=== PATIENT | female | born 1965 | race Caucasian/White ===

== ENCOUNTER → 2020-02-21 | Outpatient (CLI) | payer MEDICARE, OTHER ==
[~2020-02-21] MED LIST: ACIDOPHILUS PR1 EAC2 PO; ALBUTEROL1.25 MG/3 INH; ALBUTEROL2.5 MG/3 M INH; ALL DAY ALLERGY10 M2 PO; ASPERCREME LI76.5 GM TOP; ASPIRIN CHEWABL81 MG PO; ASPIRIN EC81 MG PO; ATENOLOL50 MG PO; AUGMENTIN 875-1 EACH PO; CEFEPIME-D2 GM/50 ML IV; CILOSTAZOL100 MG PO; CYCLOBENZAPRINE10 MG PO; CYMBALTA30 MG PO; DETROL LA4 MG PO; DITROPAN XL10 MG PO; ELIQUIS 5 MG TAB5 MG PO; FENTANYL1 EACH TOP; FERROUS SULFAT325 M2 PO; FISH OIL 1,2001 EACH PO; FLORASTOR250 MG PO; FUROSEMIDE20 MG PO; GABAPENTIN600 MG PO; HYDROCODON-ACE1 EAC2 PO; HYDROCODON-ACE1 EAC6 PO; HYDROCODONE-AC1 EACH PO; IBUPROFEN200 MG PO; IBUPROFEN800 MG PO; ISOSORBIDE DINIT5 MG PO; JANTOVEN10 MG PO; LEVOFLOXACIN500 MG PO; LIPITOR40 MG PO; LISINOPRIL-HCT1 EAC1 PO; LISINOPRIL20 MG PO; LOPRESSOR 50 MG50 MG PO; MAG-OX 400 TAB400 MG PO; METHOCARBAMOL500 MG PO; METRONIDAZ500 MG/100 IV; MIRALAX17 GM PO; NEURONTIN800 MG PO; NICOTINE PATCH1 EAC2 TD; PAMELOR PO; PERCOCET 5-3251 EACH PO; PLAVIX 75 MG TA75 MG PO; POLYETHYLENE GL17 GM PO; PROTONIX 40 MG40 M1 PO; SENNA-TIME S T1 EACH PO; SENNOSIDES-DOC1 EACH PO; SEROQUEL50 MG PO; SODIUM CHLORIDE1 G1 PO; SPIRIVA RESPIMAT4 GM INH; SYMBICORT 160-1 INHA INH; THERAGRAN M TAB1 EA PO; TYLENOL 500 MG500 MG PO; VENTOLIN HFA 66.7 GM INH; ZESTORETIC 20-1 EACH PO; ZOCOR10 MG PO; ZYVOX600 MG PO; [UNRECOGNIZED DRUG - OTHER] PO
== END ==
LOC: WCC 14:30
PROC: 0KBT0ZZ Excision of Left Lower Leg Muscle, Open Approach (ICD-10-PCS; principal; 2020-02-21)
DX: L97.825 Non-pressure chronic ulcer of other part of left lower leg with muscle involvement without evidence of necrosis (principal); L98.495 Non-pressure chronic ulcer of skin of other sites with muscle involvement without evidence of necrosis; L97.425 Non-pressure chronic ulcer of left heel and midfoot with muscle involvement without evidence of necrosis; I74.5 Embolism and thrombosis of iliac artery; I74.3 Embolism and thrombosis of arteries of the lower extremities; F17.298 Nicotine dependence, other tobacco product, with other nicotine-induced disorders; E66.09 Other obesity due to excess calories; J44.9 Chronic obstructive pulmonary disease, unspecified; I10 Essential (primary) hypertension
CPT/HCPCS: 87070; 87205

== ENCOUNTER → 2020-02-28 | Outpatient (CLI) | payer MEDICARE, OTHER | LOC: WCC 14:23 | PROC: 0KBT0ZZ Excision of Left Lower Leg Muscle, Open Approach (ICD-10-PCS; principal; 2020-02-28) | DX: L97.425 Non-pressure chronic ulcer of left heel and midfoot with muscle involvement without evidence of necrosis (principal); I74.3 Embolism and thrombosis of arteries of the lower extremities; F17.298 Nicotine dependence, other tobacco product, with other nicotine-induced disorders; E66.09 Other obesity due to excess calories; J44.9 Chronic obstructive pulmonary disease, unspecified; I10 Essential (primary) hypertension; Z79.899 Other long term (current) drug therapy ==

== ENCOUNTER → 2020-03-06 | Outpatient (CLI) | payer MEDICARE, OTHER | LOC: WCC 09:00 | PROC: 0KBT0ZZ Excision of Left Lower Leg Muscle, Open Approach (ICD-10-PCS; principal; 2020-03-06) | DX: L97.425 Non-pressure chronic ulcer of left heel and midfoot with muscle involvement without evidence of necrosis (principal); I74.5 Embolism and thrombosis of iliac artery; I74.3 Embolism and thrombosis of arteries of the lower extremities; F17.298 Nicotine dependence, other tobacco product, with other nicotine-induced disorders; E66.09 Other obesity due to excess calories; J44.9 Chronic obstructive pulmonary disease, unspecified; I10 Essential (primary) hypertension; Z79.899 Other long term (current) drug therapy ==

== ENCOUNTER → 2020-03-13 | Outpatient (CLI) | payer MEDICARE, OTHER | LOC: WCC 14:04 | PROVIDERS: Nurse Practitioner Family | PROC: 0KBT0ZZ Excision of Left Lower Leg Muscle, Open Approach (ICD-10-PCS; principal; 2020-03-13) | DX: L97.825 Non-pressure chronic ulcer of other part of left lower leg with muscle involvement without evidence of necrosis (principal); S31.104A Unspecified open wound of abdominal wall, left lower quadrant without penetration into peritoneal cavity, initial encounter; X58.XXXA Exposure to other specified factors, initial encounter; L97.425 Non-pressure chronic ulcer of left heel and midfoot with muscle involvement without evidence of necrosis; I74.5 Embolism and thrombosis of iliac artery; I74.3 Embolism and thrombosis of arteries of the lower extremities; F17.298 Nicotine dependence, other tobacco product, with other nicotine-induced disorders; E66.09 Other obesity due to excess calories; J44.9 Chronic obstructive pulmonary disease, unspecified; I10 Essential (primary) hypertension | CPT/HCPCS: 36415; 80048 ==

== ENCOUNTER → 2020-03-27 | Outpatient (CLI) | payer MEDICARE, OTHER | LOC: WCC 15:30 | PROC: 0JBP0ZZ Excision of Left Lower Leg Subcutaneous Tissue and Fascia, Open Approach (ICD-10-PCS; principal; 2020-03-27) | DX: L97.822 Non-pressure chronic ulcer of other part of left lower leg with fat layer exposed (principal); S31.104A Unspecified open wound of abdominal wall, left lower quadrant without penetration into peritoneal cavity, initial encounter; X58.XXXA Exposure to other specified factors, initial encounter ==

== ENCOUNTER → 2020-04-24 | Outpatient (CLI) | payer MEDICARE, OTHER | LOC: WCC 14:49 | PROC: 0JBP0ZZ Excision of Left Lower Leg Subcutaneous Tissue and Fascia, Open Approach (ICD-10-PCS; principal; 2020-04-24) | PROC: 0JBM0ZZ Excision of Left Upper Leg Subcutaneous Tissue and Fascia, Open Approach (ICD-10-PCS; 2020-04-24) | DX: I96 Gangrene, not elsewhere classified (principal); L97.422 Non-pressure chronic ulcer of left heel and midfoot with fat layer exposed; T81.31XA Disruption of external operation (surgical) wound, not elsewhere classified, initial encounter; I74.5 Embolism and thrombosis of iliac artery; I74.3 Embolism and thrombosis of arteries of the lower extremities; F17.298 Nicotine dependence, other tobacco product, with other nicotine-induced disorders; J44.9 Chronic obstructive pulmonary disease, unspecified; I10 Essential (primary) hypertension; E66.09 Other obesity due to excess calories; Z68.28 Body mass index [BMI] 28.0-28.9, adult; Z79.2 Long term (current) use of antibiotics; Z79.891 Long term (current) use of opiate analgesic; Z79.01 Long term (current) use of anticoagulants; Z79.899 Other long term (current) drug therapy; Z92.21 Personal history of antineoplastic chemotherapy; Z92.3 Personal history of irradiation; Y83.8 Other surgical procedures as the cause of abnormal reaction of the patient, or of later complication, without mention of misadventure at the time of the procedure ==

== ENCOUNTER → 2020-05-08 | Outpatient (CLI) | payer MEDICARE, OTHER | LOC: WCC 14:59 | PROC: 0KBT0ZZ Excision of Left Lower Leg Muscle, Open Approach (ICD-10-PCS; principal; 2020-05-08) | DX: I96 Gangrene, not elsewhere classified (principal); L97.423 Non-pressure chronic ulcer of left heel and midfoot with necrosis of muscle; T81.31XD Disruption of external operation (surgical) wound, not elsewhere classified, subsequent encounter; I74.5 Embolism and thrombosis of iliac artery; I74.3 Embolism and thrombosis of arteries of the lower extremities; F17.298 Nicotine dependence, other tobacco product, with other nicotine-induced disorders; J44.9 Chronic obstructive pulmonary disease, unspecified; I10 Essential (primary) hypertension; E66.09 Other obesity due to excess calories; Z68.28 Body mass index [BMI] 28.0-28.9, adult; Z79.01 Long term (current) use of anticoagulants; Z79.2 Long term (current) use of antibiotics; Z79.891 Long term (current) use of opiate analgesic; Z79.899 Other long term (current) drug therapy; Z92.21 Personal history of antineoplastic chemotherapy; Z92.3 Personal history of irradiation; Y83.8 Other surgical procedures as the cause of abnormal reaction of the patient, or of later complication, without mention of misadventure at the time of the procedure ==

== ENCOUNTER 2020-05-22 13:43 | Inpatient (IN) | payer MEDICARE, OTHER ==
[~2020-05-22] VITALS: Ht 172.7 cm; Wt 86.2 kg
[~2020-05-22 13:43] MED LIST changes: -ACIDOPHILUS PR1 EAC2 PO; -AUGMENTIN 875-1 EACH PO; -CEFEPIME-D2 GM/50 ML IV; -CILOSTAZOL100 MG PO; -DITROPAN XL10 MG PO; -FENTANYL1 EACH TOP; -FERROUS SULFAT325 M2 PO; -FLORASTOR250 MG PO; -FUROSEMIDE20 MG PO; -HYDROCODON-ACE1 EAC6 PO; -HYDROCODONE-AC1 EACH PO; -JANTOVEN10 MG PO; -LISINOPRIL-HCT1 EAC1 PO; -LISINOPRIL20 MG PO; -MAG-OX 400 TAB400 MG PO; -METRONIDAZ500 MG/100 IV; -MIRALAX17 GM PO; -PAMELOR PO; -PERCOCET 5-3251 EACH PO; -PROTONIX 40 MG40 M1 PO; -SENNOSIDES-DOC1 EACH PO; -SODIUM CHLORIDE1 G1 PO; -ZYVOX600 MG PO; -[UNRECOGNIZED DRUG - OTHER] PO
[2020-05-22 15:23] LABS: HEMOGLOBIN 14.5 gm/dl (12.3-15.3); RED BLOOD COUNT 4.94 M/UL (4.00-5.10); WHITE BLOOD COUNT 12.8 K/UL (4.5-11.0)
[2020-05-22 15:42] LABS: BUN/CREATININE RATIO 18 (0-10)
[2020-05-22] MEDS ORDERED: NEURONTIN800 MG PO (18:41)
[2020-05-22] MEDS ORDERED: HYDROCODON-ACE1 EAC6 PO (18:42)
[2020-05-22] MEDS ORDERED: LISINOPRIL-HCT1 EAC1 PO (18:43)
[2020-05-23 04:01] LABS: HEMOGLOBIN 13.1 gm/dl (12.3-15.3); RED BLOOD COUNT 4.46 M/UL (4.00-5.10)
[2020-05-23 04:17] LABS: BUN/CREATININE RATIO 20 (0-10)
[2020-05-23 09:30] LABS: BUN/CREATININE RATIO 20 (0-10)
[2020-05-23 09:33] LABS: HEMOGLOBIN 13.2 gm/dl (12.3-15.3); RED BLOOD COUNT 4.43 M/UL (4.00-5.10); WHITE BLOOD COUNT 7.4 K/UL (4.5-11.0)
--- NOTE | 2020-05-23 18:32 | NUR ---
CALLED REPORT TO ASA ESCOBAR IN ICU
--- NOTE | 2020-05-23 19:04 | NUR ---
PT CURRENTLY IN OR
[2020-05-23 21:48] LABS: HEMOGLOBIN 12.2 gm/dl (12.3-15.3); RED BLOOD COUNT 4.12 M/UL (4.00-5.10)
[2020-05-23 22:43] LABS: BUN/CREATININE RATIO 19 (0-10)
[2020-05-24 05:35] LABS: HEMOGLOBIN 11.8 gm/dl (12.3-15.3); RED BLOOD COUNT 3.98 M/UL (4.00-5.10); WHITE BLOOD COUNT 7.3 K/UL (4.5-11.0)
[2020-05-24 06:00] LABS: BUN/CREATININE RATIO 17 (0-10)
[2020-05-24 21:52] LABS: HEMOGLOBIN 10.9 gm/dl (12.3-15.3)
--- NOTE | 2020-05-25 02:58 | NUR ---
0059- OBTAINED ORDER FROM DR. YODER TO EXTUBATE THE PATIENT. CALLED RT. CHANGED VENT SETTINGS TO CPAP, PT WAS ABLE TO BREATHE SUCCESSFUL ON HER OWN. AFTER CONTINUOUS MONITORING ON THIS SETTING AN ABG WAS PERFORMED AND WAS WNL. 0155- PT WAS EXTUBATED. PERFORMED SUCTION. PT WAS PLACED ON NASAL CANNULA 2LPM, O2 SAT IS CURRENTLY 96%.
[2020-05-25 05:31] LABS: HEMOGLOBIN 9.7 gm/dl (12.3-15.3)
[2020-05-25 05:43] LABS: RED BLOOD COUNT 3.29 M/UL (4.00-5.10)
[2020-05-25 06:20] LABS: BUN/CREATININE RATIO 25 (0-10)
[2020-05-25 17:09] LABS: HEPARIN INDUCED PLATELET AB 0.069 OD (0.000-0.400)
[2020-05-26 05:21] LABS: HEMOGLOBIN 8.7 gm/dl (12.3-15.3); RED BLOOD COUNT 2.99 M/UL (4.00-5.10)
[2020-05-26 05:42] LABS: BUN/CREATININE RATIO 20 (0-10)
[2020-05-27 05:35] LABS: HEMOGLOBIN 8.2 gm/dl (12.3-15.3); RED BLOOD COUNT 2.93 M/UL (4.00-5.10); WHITE BLOOD COUNT 5.3 K/UL (4.5-11.0)
[2020-05-27 06:00] LABS: BUN/CREATININE RATIO 18 (0-10)
[2020-05-27] MEDS ORDERED: PERCOCET 5-3251 EACH PO (17:35)
[2020-05-27] MEDS ORDERED: JANTOVEN10 MG PO (17:35)
[2020-05-27] MEDS ORDERED: FISH OIL 1,2001 EACH PO (17:53)
== END 2020-05-27 18:28 | disposition home health service (06) | DRG 270 ==
LOC: ER1 13:43 → CDU 17:51 → M/S 17:51 → CCU 17:51 → M/S 21:10 → CCU 05-23 18:12
PROVIDERS: Emergency Medicine; Family Medicine; Physician Assistant; Surgery; ADMIT Internal Medicine
PROC: 04CD3ZZ Extirpation of Matter from Left Common Iliac Artery, Percutaneous Approach (ICD-10-PCS; 2020-05-23)
PROC: 04CJ3ZZ Extirpation of Matter from Left External Iliac Artery, Percutaneous Approach (ICD-10-PCS; 2020-05-23)
PROC: 047L3ZZ Dilation of Left Femoral Artery, Percutaneous Approach (ICD-10-PCS; 2020-05-23)
PROC: 04CL3ZZ Extirpation of Matter from Left Femoral Artery, Percutaneous Approach (ICD-10-PCS; 2020-05-23 16:00)
PROC: B24BZZZ Ultrasonography of Heart with Aorta (ICD-10-PCS; principal; 2020-05-24)
DX: T82.868A Thrombosis due to vascular prosthetic devices, implants and grafts, initial encounter (principal); J96.01 Acute respiratory failure with hypoxia; E87.1 Hypo-osmolality and hyponatremia; L97.229 Non-pressure chronic ulcer of left calf with unspecified severity; Z20.822 Contact with and (suspected) exposure to COVID-19; I73.9 Peripheral vascular disease, unspecified; D72.829 Elevated white blood cell count, unspecified; I10 Essential (primary) hypertension; E78.5 Hyperlipidemia, unspecified; J44.9 Chronic obstructive pulmonary disease, unspecified; F17.210 Nicotine dependence, cigarettes, uncomplicated; Z90.49 Acquired absence of other specified parts of digestive tract; Z82.49 Family history of ischemic heart disease and other diseases of the circulatory system; Z90.710 Acquired absence of both cervix and uterus; Z85.42 Personal history of malignant neoplasm of other parts of uterus; Z80.9 Family history of malignant neoplasm, unspecified; Z79.01 Long term (current) use of anticoagulants; Z79.82 Long term (current) use of aspirin; Z79.899 Other long term (current) drug therapy
CPT/HCPCS: 36415; 36600; 71045; 75630; 75635; 80048; 80053; 81001; 82550; 82553; 82803; 83036; 83605; 83735; 83880; 84100; 85014; 85018; 85025; 85610; 85730; 86850; 86900; 86901; 86920; 87040; 87635; 93005; 93308; 93971; 94002; 94003; 94640; 94760; 96374; 96375; 96376; 97116-GP-CQ; 97161; 99285; C1725; C1769; C1887; C2623; J0610; J0883; J1170; J1644; J2001; J2060; J2250; J2270; J2370; J2405; J2704; J2710; J3010; J3475; J7030; J7040; J7050; J7070; J7120; P9045; Q9967

== ENCOUNTER → 2020-05-29 | Outpatient (CLI) | payer MEDICARE, OTHER ==
[~2020-05-29] MED LIST changes: +ACIDOPHILUS PR1 EAC2 PO; +AUGMENTIN 875-1 EACH PO; +CEFEPIME-D2 GM/50 ML IV; +CILOSTAZOL100 MG PO; +DITROPAN XL10 MG PO; +FENTANYL1 EACH TOP; +FERROUS SULFAT325 M2 PO; +FLORASTOR250 MG PO; +FUROSEMIDE20 MG PO; +HYDROCODON-ACE1 EAC6 PO; +HYDROCODONE-AC1 EACH PO; +JANTOVEN10 MG PO; +LISINOPRIL-HCT1 EAC1 PO; +LISINOPRIL20 MG PO; +MAG-OX 400 TAB400 MG PO; +METRONIDAZ500 MG/100 IV; +MIRALAX17 GM PO; +PAMELOR PO; +PERCOCET 5-3251 EACH PO; +PROTONIX 40 MG40 M1 PO; +SENNOSIDES-DOC1 EACH PO; +SODIUM CHLORIDE1 G1 PO; +ZYVOX600 MG PO; +[UNRECOGNIZED DRUG - OTHER] PO
== END ==
LOC: WCC 14:52
DX: L97.929 Non-pressure chronic ulcer of unspecified part of left lower leg with unspecified severity (principal); Z53.21 Procedure and treatment not carried out due to patient leaving prior to being seen by health care provider

== ENCOUNTER → 2020-05-29 | Outpatient (CLI) | payer MEDICARE, OTHER | LOC: LAB 14:28 | DX: Z79.01 Long term (current) use of anticoagulants (principal) | CPT/HCPCS: 36415; 85610 ==

== ENCOUNTER 2020-06-12 02:31 | Inpatient (IN) | payer MEDICARE, OTHER ==
[~2020-06-12] VITALS: Ht 172.7 cm; Wt 87.1 kg
[~2020-06-12 02:31] MED LIST changes: -ACIDOPHILUS PR1 EAC2 PO; -AUGMENTIN 875-1 EACH PO; -CEFEPIME-D2 GM/50 ML IV; -CILOSTAZOL100 MG PO; -DITROPAN XL10 MG PO; -FENTANYL1 EACH TOP; -FERROUS SULFAT325 M2 PO; -FLORASTOR250 MG PO; -FUROSEMIDE20 MG PO; -HYDROCODONE-AC1 EACH PO; -LISINOPRIL20 MG PO; -MAG-OX 400 TAB400 MG PO; -METRONIDAZ500 MG/100 IV; -MIRALAX17 GM PO; -PAMELOR PO; -PROTONIX 40 MG40 M1 PO; -SENNOSIDES-DOC1 EACH PO; -SODIUM CHLORIDE1 G1 PO; -ZYVOX600 MG PO; -[UNRECOGNIZED DRUG - OTHER] PO
[2020-06-12 03:03] LABS: HEMOGLOBIN 11.4 gm/dl (12.3-15.3); RED BLOOD COUNT 3.83 M/UL (4.00-5.10); WHITE BLOOD COUNT 15.9 K/UL (4.5-11.0)
[2020-06-12 11:30] LABS: HEMOGLOBIN 10.3 gm/dl (12.3-15.3); RED BLOOD COUNT 3.52 M/UL (4.00-5.10); WHITE BLOOD COUNT 11.8 K/UL (4.5-11.0)
[2020-06-12 18:00] LABS: HEMOGLOBIN 9.1 gm/dl (12.3-15.3); RED BLOOD COUNT 3.1 M/UL (4.00-5.10); WHITE BLOOD COUNT 10.3 K/UL (4.5-11.0)
[2020-06-12 18:42] LABS: BUN/CREATININE RATIO 32 (0-10)
[2020-06-13 05:21] LABS: HEMOGLOBIN 7.9 gm/dl (12.3-15.3); WHITE BLOOD COUNT 7.8 K/UL (4.5-11.0)
[2020-06-13 05:26] LABS: RED BLOOD COUNT 2.67 M/UL (4.00-5.10)
[2020-06-13 06:21] LABS: BUN/CREATININE RATIO 27 (0-10)
[2020-06-14 04:30] LABS: HEMOGLOBIN 7.1 gm/dl (12.3-15.3); WHITE BLOOD COUNT 6.5 K/UL (4.5-11.0)
[2020-06-14 04:35] LABS: RED BLOOD COUNT 2.4 M/UL (4.00-5.10)
[2020-06-14 05:24] LABS: BUN/CREATININE RATIO 13 (0-10)
--- NOTE | 2020-06-14 06:32 | NUR ---
FOUR TIMES THROUGHOUT THE NIGHT THE PATIENT PURPOSELY REMOVED THE DRESSING ON HER LEFT AKA AND HAD TO BE DRESSED AGAIN. I EDUCATED HER MULTIPLE TIMES THAT REMOVING THE DRESSING PUTS HER AT HIGHER RISK FOR INFECTION.
[2020-06-14 12:59] LABS: HEMOGLOBIN 7.2 gm/dl (12.3-15.3)
[2020-06-14 20:04] LABS: HEMOGLOBIN 9.6 gm/dl (12.3-15.3)
[2020-06-15 04:36] LABS: HEMOGLOBIN 9.4 gm/dl (12.3-15.3)
[2020-06-15 04:39] LABS: RED BLOOD COUNT 3.17 M/UL (4.00-5.10); WHITE BLOOD COUNT 9.1 K/UL (4.5-11.0)
[2020-06-15 05:21] LABS: BUN/CREATININE RATIO 13 (0-10)
[2020-06-16 05:03] LABS: HEMOGLOBIN 9.4 gm/dl (12.3-15.3); RED BLOOD COUNT 3.15 M/UL (4.00-5.10); WHITE BLOOD COUNT 9.2 K/UL (4.5-11.0)
[2020-06-16 05:55] LABS: BUN/CREATININE RATIO 12 (0-10)
[2020-06-16] MEDS ORDERED: ELIQUIS 5 MG TAB5 MG PO (09:58)
[2020-06-16] MEDS ORDERED: HYDROCODON-ACE1 EAC6 PO (09:58)
[2020-06-16] MEDS ORDERED: LISINOPRIL20 MG PO (09:58)
[2020-06-16] MEDS ORDERED: AUGMENTIN 875-1 EACH PO (09:58)
== END 2020-06-16 14:19 | DRG 270 ==
LOC: ER1 02:31 → CDU 04:15 → PROG CARE 04:15 → CCU 13:59
PROVIDERS: Emergency Medicine; Internal Medicine; Surgery; ADMIT Internal Medicine Infectious Disease
PROC: 04CC0ZZ Extirpation of Matter from Right Common Iliac Artery, Open Approach (ICD-10-PCS; 2020-06-12)
PROC: 0Y6D0Z2 Detachment at Left Upper Leg, Mid, Open Approach (ICD-10-PCS; 2020-06-12)
PROC: 04CK0ZZ Extirpation of Matter from Right Femoral Artery, Open Approach (ICD-10-PCS; 2020-06-12)
PROC: 04CH0ZZ Extirpation of Matter from Right External Iliac Artery, Open Approach (ICD-10-PCS; 2020-06-12)
PROC: 0KNS0ZZ Release Right Lower Leg Muscle, Open Approach (ICD-10-PCS; 2020-06-12)
PROC: 0KNS0ZZ Release Right Lower Leg Muscle, Open Approach (ICD-10-PCS; 2020-06-12)
PROC: 0KNS0ZZ Release Right Lower Leg Muscle, Open Approach (ICD-10-PCS; 2020-06-12)
PROC: 0KNS0ZZ Release Right Lower Leg Muscle, Open Approach (ICD-10-PCS; 2020-06-12)
PROC: 30233N1 Transfusion of Nonautologous Red Blood Cells into Peripheral Vein, Percutaneous Approach (ICD-10-PCS; principal; 2020-06-12 11:03)
PROC: 30233N1 Transfusion of Nonautologous Red Blood Cells into Peripheral Vein, Percutaneous Approach (ICD-10-PCS; 2020-06-14)
DX: E11.52 Type 2 diabetes mellitus with diabetic peripheral angiopathy with gangrene (principal); R65.11 Systemic inflammatory response syndrome (SIRS) of non-infectious origin with acute organ dysfunction; I96 Gangrene, not elsewhere classified; M62.82 Rhabdomyolysis; N17.9 Acute kidney failure, unspecified; D62 Acute posthemorrhagic anemia; Z20.822 Contact with and (suspected) exposure to COVID-19; I10 Essential (primary) hypertension; E87.6 Hypokalemia; E78.5 Hyperlipidemia, unspecified; F17.210 Nicotine dependence, cigarettes, uncomplicated; E66.01 Morbid (severe) obesity due to excess calories; J44.9 Chronic obstructive pulmonary disease, unspecified; Z90.710 Acquired absence of both cervix and uterus; Z85.43 Personal history of malignant neoplasm of ovary; Z90.49 Acquired absence of other specified parts of digestive tract; Z82.5 Family history of asthma and other chronic lower respiratory diseases; Z82.61 Family history of arthritis; Z79.01 Long term (current) use of anticoagulants; Z79.82 Long term (current) use of aspirin; Z79.899 Other long term (current) drug therapy; Z68.29 Body mass index [BMI] 29.0-29.9, adult; Z91.19 Patient's noncompliance with other medical treatment and regimen
CPT/HCPCS: 36415; 36430; 71045; 75625; 75635; 80048; 80053; 82550; 82553; 82962; 83605; 83735; 84100; 84132; 85014; 85018; 85025; 85027; 85610; 85730; 86850; 86900; 86901; 86920; 86927; 87070; 87205; 93005; 94640; 94664; 94760; 96372; 96374; 96375; 96376; 97110; 97162; 97167; 97530; 97530-GP-CQ; 99285; C1751; C1757; C1769; C1894; J0690; J0883; J1170; J1335; J1580; J1644; J1885; J2060; J2250; J2270; J2370; J2405; J2543; J3010; J3430; J3475; J7030; J7040; J7050; J7120; P9016; P9017; Q9962; Q9967; U0002

== ENCOUNTER → 2020-06-26 | Outpatient (CLI) | payer MEDICARE, OTHER ==
[~2020-06-26] MED LIST changes: +ACIDOPHILUS PR1 EAC2 PO; +AUGMENTIN 875-1 EACH PO; +CEFEPIME-D2 GM/50 ML IV; +CILOSTAZOL100 MG PO; +DITROPAN XL10 MG PO; +FENTANYL1 EACH TOP; +FERROUS SULFAT325 M2 PO; +FLORASTOR250 MG PO; +FUROSEMIDE20 MG PO; +HYDROCODONE-AC1 EACH PO; +LISINOPRIL20 MG PO; +MAG-OX 400 TAB400 MG PO; +METRONIDAZ500 MG/100 IV; +MIRALAX17 GM PO; +PAMELOR PO; +PROTONIX 40 MG40 M1 PO; +SENNOSIDES-DOC1 EACH PO; +SODIUM CHLORIDE1 G1 PO; +ZYVOX600 MG PO; +[UNRECOGNIZED DRUG - OTHER] PO
== END ==
LOC: WCC 14:12
DX: T81.31XA Disruption of external operation (surgical) wound, not elsewhere classified, initial encounter (principal); Z89.612 Acquired absence of left leg above knee; J44.9 Chronic obstructive pulmonary disease, unspecified; I10 Essential (primary) hypertension; Z86.718 Personal history of other venous thrombosis and embolism

== ENCOUNTER 2020-06-29 09:43 | Inpatient (IN) | payer MEDICARE, OTHER ==
[~2020-06-29] VITALS: Ht 172.7 cm; Wt 79.4 kg
[~2020-06-29 09:43] MED LIST changes: -ACIDOPHILUS PR1 EAC2 PO; -CEFEPIME-D2 GM/50 ML IV; -CILOSTAZOL100 MG PO; -DITROPAN XL10 MG PO; -FENTANYL1 EACH TOP; -FERROUS SULFAT325 M2 PO; -FLORASTOR250 MG PO; -FUROSEMIDE20 MG PO; -HYDROCODONE-AC1 EACH PO; -MAG-OX 400 TAB400 MG PO; -METRONIDAZ500 MG/100 IV; -MIRALAX17 GM PO; -PAMELOR PO; -PROTONIX 40 MG40 M1 PO; -SENNOSIDES-DOC1 EACH PO; -SODIUM CHLORIDE1 G1 PO; -ZYVOX600 MG PO; -[UNRECOGNIZED DRUG - OTHER] PO
[2020-06-29] MEDS ORDERED: CEFEPIME-D2 GM/50 ML IV (19:09)
[2020-06-29] MEDS ORDERED: ACIDOPHILUS PR1 EAC2 PO (19:16)
[2020-06-29] MEDS ORDERED: METRONIDAZ500 MG/100 IV (19:17)
[2020-06-29] MEDS ORDERED: HYDROCODONE-AC1 EACH PO (19:21)
[2020-06-29] MEDS ORDERED: SENNOSIDES-DOC1 EACH PO (19:22)
[2020-06-29] MEDS ORDERED: MIRALAX17 GM PO (19:23)
[2020-06-29] MEDS ORDERED: PROTONIX 40 MG40 M1 PO (19:25)
[2020-06-29] MEDS ORDERED: DITROPAN XL10 MG PO (19:26)
[2020-06-29] MEDS ORDERED: PAMELOR PO (19:27)
[2020-06-29] MEDS ORDERED: [UNRECOGNIZED DRUG - OTHER] PO (19:27)
[2020-06-29 20:09] LABS: HEMOGLOBIN 8.8 gm/dl (12.3-15.3); RED BLOOD COUNT 3.07 M/UL (4.00-5.10); WHITE BLOOD COUNT 11.1 K/UL (4.5-11.0)
[2020-06-29 20:28] LABS: BUN/CREATININE RATIO 23 (0-10)
--- NOTE | 2020-06-30 02:28 | NUR ---
PT REFUSED NEURONTIN ORDERED BY DR PALMER FOR HER LEG PAIN. PT STATES IT "MAKES ME CRAZY."
[2020-06-30 05:53] LABS: HEMOGLOBIN 8.5 gm/dl (12.3-15.3); RED BLOOD COUNT 2.98 M/UL (4.00-5.10); WHITE BLOOD COUNT 9.5 K/UL (4.5-11.0)
[2020-06-30 06:17] LABS: BUN/CREATININE RATIO 22 (0-10)
[2020-07-01 04:05] LABS: HEMOGLOBIN 8.4 gm/dl (12.3-15.3); RED BLOOD COUNT 2.95 M/UL (4.00-5.10); WHITE BLOOD COUNT 8.4 K/UL (4.5-11.0)
[2020-07-01 04:42] LABS: BUN/CREATININE RATIO 18 (0-10)
[2020-07-03 04:13] LABS: HEMOGLOBIN 9.2 gm/dl (12.3-15.3); WHITE BLOOD COUNT 10.1 K/UL (4.5-11.0)
[2020-07-03 04:14] LABS: RED BLOOD COUNT 3.28 M/UL (4.00-5.10)
[2020-07-03 04:33] LABS: BUN/CREATININE RATIO 20 (0-10)
[2020-07-04 05:03] LABS: BUN/CREATININE RATIO 18 (0-10)
[2020-07-05 05:31] LABS: HEMOGLOBIN 9.1 gm/dl (12.3-15.3); RED BLOOD COUNT 3.27 M/UL (4.00-5.10); WHITE BLOOD COUNT 8.6 K/UL (4.5-11.0)
[2020-07-05 05:56] LABS: BUN/CREATININE RATIO 23 (0-10)
[2020-07-06 05:19] LABS: HEMOGLOBIN 8.5 gm/dl (12.3-15.3); RED BLOOD COUNT 3.05 M/UL (4.00-5.10); WHITE BLOOD COUNT 9.2 K/UL (4.5-11.0)
[2020-07-06 05:42] LABS: BUN/CREATININE RATIO 25 (0-10)
[2020-07-07 03:09] LABS: HEMOGLOBIN 8.7 gm/dl (12.3-15.3); RED BLOOD COUNT 3.15 M/UL (4.00-5.10); WHITE BLOOD COUNT 10.9 K/UL (4.5-11.0)
[2020-07-07 03:27] LABS: BUN/CREATININE RATIO 25 (0-10)
[2020-07-08 04:44] LABS: HEMOGLOBIN 8.6 gm/dl (12.3-15.3); RED BLOOD COUNT 3.22 M/UL (4.00-5.10)
[2020-07-08 05:06] LABS: BUN/CREATININE RATIO 24 (0-10)
[2020-07-09 03:24] LABS: RED BLOOD COUNT 3.24 M/UL (4.00-5.10); WHITE BLOOD COUNT 7.5 K/UL (4.5-11.0)
[2020-07-09 03:48] LABS: BUN/CREATININE RATIO 24 (0-10)
--- NOTE | 2020-07-09 19:11 | NUR ---
DISCUSSED WITH DR RENDON PATIENTS REFUSAL OF DRESSING CHANGES - MD REQUESTED TO INCREASE PAIN MEDICATION PRIOR TO DRESSING CHANGE TO HELP WITH PAIN CONTROL. DISCUSSED THIS WITH PATIENT. PATIENT REFUSES NURSING TO CHANGE DRESSINGS ORDERED UNTIL SPEAKS WITH DR. YODER IN PERSON - DR. YODER MADE AWARE - NO NEW ORDERS - TW
[2020-07-10 05:59] LABS: RED BLOOD COUNT 3.23 M/UL (4.00-5.10)
[2020-07-10 06:05] LABS: WHITE BLOOD COUNT 9.6 K/UL (4.5-11.0)
[2020-07-10 06:20] LABS: BUN/CREATININE RATIO 26 (0-10)
[2020-07-11 03:55] LABS: HEMOGLOBIN 8.7 gm/dl (12.3-15.3); RED BLOOD COUNT 3.11 M/UL (4.00-5.10); WHITE BLOOD COUNT 7.6 K/UL (4.5-11.0)
--- NOTE | 2020-07-11 07:20 | NUR ---
PT TAKEN DOWN TO OR FOR DEBRIDEMENT OF WOUNDS
--- NOTE | 2020-07-11 13:00 | NUR ---
PT BACK FROM SURGERY, WOUND VACS NOTED TO BILATERAL GROINS, LEFT AKA STUMP AND RIGHT HAMMOND, VSS AT THIS TIME WITH BP OF 157/69 MAP-90 RR-16 AND HR-94, WILL CONTINUE TO MONITOR
[2020-07-12 02:48] LABS: HEMOGLOBIN 7.7 gm/dl (12.3-15.3); RED BLOOD COUNT 2.86 M/UL (4.00-5.10)
[2020-07-12 02:52] LABS: WHITE BLOOD COUNT 10.4 K/UL (4.5-11.0)
[2020-07-12 03:08] LABS: BUN/CREATININE RATIO 26 (0-10)
--- NOTE | 2020-07-12 14:00 | NUR ---
NO CHANGE FROM PREVIOUS ASSESSMENT
[2020-07-13 02:57] LABS: HEMOGLOBIN 7.3 gm/dl (12.3-15.3); RED BLOOD COUNT 2.69 M/UL (4.00-5.10)
[2020-07-13 03:00] LABS: WHITE BLOOD COUNT 6.1 K/UL (4.5-11.0)
[2020-07-13 03:21] LABS: BUN/CREATININE RATIO 19 (0-10)
[2020-07-14 03:06] LABS: HEMOGLOBIN 7.2 gm/dl (12.3-15.3); RED BLOOD COUNT 2.56 M/UL (4.00-5.10); WHITE BLOOD COUNT 4.8 K/UL (4.5-11.0)
[2020-07-14 03:34] LABS: BUN/CREATININE RATIO 13 (0-10)
[2020-07-14] MEDS ORDERED: FENTANYL1 EACH TOP (13:20)
[2020-07-14] MEDS ORDERED: MAG-OX 400 TAB400 MG PO (13:20)
[2020-07-14] MEDS ORDERED: FUROSEMIDE20 MG PO (13:20)
[2020-07-14] MEDS ORDERED: FLORASTOR250 MG PO (13:20)
[2020-07-14] MEDS ORDERED: SODIUM CHLORIDE1 G1 PO (13:20)
[2020-07-14] MEDS ORDERED: HYDROCODON-ACE1 EAC2 PO (13:20)
[2020-07-14] MEDS ORDERED: CILOSTAZOL100 MG PO (13:20)
[2020-07-14] MEDS ORDERED: ZYVOX600 MG PO (13:20)
[2020-07-14] MEDS ORDERED: FERROUS SULFAT325 M2 PO (16:13)
--- NOTE | 2020-07-14 20:20 | NUR ---
[facility] WAS CALLED FOR REPORT. DAMION WAS THE ONCALL NURSE THAT I CALLED REPORT TO. PT IS GOT EVERYTHING SHE NEEDS AT HOME. SHAR WAS LEFT IN PLACE PER MD ORDERS.
== END 2020-07-14 22:15 | disposition home or self-care (01) | DRG 500 ==
LOC: CCU 18:06 → MED SURG 4 18:06 → PROG CARE 18:06 → CCU 07-05 12:09 → PROG CARE 07-07 16:07
PROVIDERS: Internal Medicine; Internal Medicine Infectious Disease; Surgery; ADMIT Internal Medicine
PROC: 0KBT0ZZ Excision of Left Lower Leg Muscle, Open Approach (ICD-10-PCS; principal; 2020-07-06 18:00)
DX: T87.44 Infection of amputation stump, left lower extremity (principal); A41.9 Sepsis, unspecified organism; G93.41 Metabolic encephalopathy; E22.2 Syndrome of inappropriate secretion of antidiuretic hormone; M62.82 Rhabdomyolysis; L03.116 Cellulitis of left lower limb; I10 Essential (primary) hypertension; I73.9 Peripheral vascular disease, unspecified; E78.5 Hyperlipidemia, unspecified; J44.9 Chronic obstructive pulmonary disease, unspecified; F17.200 Nicotine dependence, unspecified, uncomplicated; G89.29 Other chronic pain; F11.10 Opioid abuse, uncomplicated; D50.9 Iron deficiency anemia, unspecified; I11.9 Hypertensive heart disease without heart failure; Y83.8 Other surgical procedures as the cause of abnormal reaction of the patient, or of later complication, without mention of misadventure at the time of the procedure; E87.6 Hypokalemia; E11.9 Type 2 diabetes mellitus without complications; Z90.710 Acquired absence of both cervix and uterus; Z45.2 Encounter for adjustment and management of vascular access device; Z85.42 Personal history of malignant neoplasm of other parts of uterus; Z90.49 Acquired absence of other specified parts of digestive tract; Z89.612 Acquired absence of left leg above knee; Z85.43 Personal history of malignant neoplasm of ovary; Y93.89 Activity, other specified; Y92.89 Other specified places as the place of occurrence of the external cause
CPT/HCPCS: 36415; 36430; 80048; 80053; 80202; 82436; 82550; 82553; 82728; 83036; 83540; 83550; 83735; 84132; 84133; 84300; 84484; 85025; 85384; 86140; 86850; 86900; 86901; 86920; 87040; 87070; 87077; 87186; 87205; 93005; C1751; J0692; J0878; J1100; J1170; J1335; J1580; J1756; J2001; J2020; J2185; J2250; J2270; J2405; J2704; J2795; J3010; J3370; J3475; J7030; J7040; J7050; J7070; J7120; P9016; Q4133; U0002

== ENCOUNTER → 2020-07-21 | Outpatient (CLI) | payer MEDICARE, OTHER ==
[~2020-07-21] MED LIST changes: +ACIDOPHILUS PR1 EAC2 PO; +CEFEPIME-D2 GM/50 ML IV; +CILOSTAZOL100 MG PO; +DITROPAN XL10 MG PO; +FENTANYL1 EACH TOP; +FERROUS SULFAT325 M2 PO; +FLORASTOR250 MG PO; +FUROSEMIDE20 MG PO; +HYDROCODONE-AC1 EACH PO; +MAG-OX 400 TAB400 MG PO; +METRONIDAZ500 MG/100 IV; +MIRALAX17 GM PO; +PAMELOR PO; +PROTONIX 40 MG40 M1 PO; +SENNOSIDES-DOC1 EACH PO; +SODIUM CHLORIDE1 G1 PO; +ZYVOX600 MG PO; +[UNRECOGNIZED DRUG - OTHER] PO
== END ==
LOC: EXRD 07-20 14:00 → US 10:00
DX: I73.9 Peripheral vascular disease, unspecified (principal); E11.40 Type 2 diabetes mellitus with diabetic neuropathy, unspecified; I10 Essential (primary) hypertension; J44.9 Chronic obstructive pulmonary disease, unspecified
CPT/HCPCS: 93926

== ENCOUNTER → 2020-07-27 | Outpatient (CLI) | payer MEDICARE, OTHER | LOC: WCC 11:04 | DX: T81.31XD Disruption of external operation (surgical) wound, not elsewhere classified, subsequent encounter (principal); T87.81 Dehiscence of amputation stump; E11.51 Type 2 diabetes mellitus with diabetic peripheral angiopathy without gangrene; E11.40 Type 2 diabetes mellitus with diabetic neuropathy, unspecified; E66.09 Other obesity due to excess calories; I10 Essential (primary) hypertension; F17.298 Nicotine dependence, other tobacco product, with other nicotine-induced disorders; J44.9 Chronic obstructive pulmonary disease, unspecified; Z89.612 Acquired absence of left leg above knee; Z91.19 Patient's noncompliance with other medical treatment and regimen; Z68.28 Body mass index [BMI] 28.0-28.9, adult; Z79.01 Long term (current) use of anticoagulants; Z79.899 Other long term (current) drug therapy ==

== ENCOUNTER → 2020-08-03 | Outpatient (CLI) | payer MEDICARE, OTHER | LOC: WCC 13:30 | DX: T87.81 Dehiscence of amputation stump (principal); S71.102D Unspecified open wound, left thigh, subsequent encounter; S71.101D Unspecified open wound, right thigh, subsequent encounter; S81.801D Unspecified open wound, right lower leg, subsequent encounter; E11.51 Type 2 diabetes mellitus with diabetic peripheral angiopathy without gangrene; E11.40 Type 2 diabetes mellitus with diabetic neuropathy, unspecified; E66.09 Other obesity due to excess calories; I10 Essential (primary) hypertension; F17.298 Nicotine dependence, other tobacco product, with other nicotine-induced disorders; J44.9 Chronic obstructive pulmonary disease, unspecified; Z89.612 Acquired absence of left leg above knee; Z91.19 Patient's noncompliance with other medical treatment and regimen; Z68.28 Body mass index [BMI] 28.0-28.9, adult; Z79.01 Long term (current) use of anticoagulants; Z79.899 Other long term (current) drug therapy; X58.XXXD Exposure to other specified factors, subsequent encounter ==

== ENCOUNTER → 2020-08-15 | Outpatient (CLI) | payer MEDICARE, OTHER | LOC: WCC 14:45 | DX: T87.81 Dehiscence of amputation stump (principal) | CPT/HCPCS: 87070; 87077; 87186; 87205 ==

== ENCOUNTER → 2020-08-17 | Outpatient (CLI) | payer MEDICARE, OTHER | LOC: WCC 13:00 | PROC: 0JBM0ZZ Excision of Left Upper Leg Subcutaneous Tissue and Fascia, Open Approach (ICD-10-PCS; principal; 2020-08-17) | PROC: 0JBL0ZZ Excision of Right Upper Leg Subcutaneous Tissue and Fascia, Open Approach (ICD-10-PCS; 2020-08-17) | DX: T87.81 Dehiscence of amputation stump (principal); T87.54 Necrosis of amputation stump, left lower extremity; T87.53 Necrosis of amputation stump, right lower extremity; E11.40 Type 2 diabetes mellitus with diabetic neuropathy, unspecified; I10 Essential (primary) hypertension; J44.9 Chronic obstructive pulmonary disease, unspecified; F17.298 Nicotine dependence, other tobacco product, with other nicotine-induced disorders; E66.09 Other obesity due to excess calories; Z68.28 Body mass index [BMI] 28.0-28.9, adult; Z91.19 Patient's noncompliance with other medical treatment and regimen; Z79.01 Long term (current) use of anticoagulants; Z79.891 Long term (current) use of opiate analgesic; Z79.899 Other long term (current) drug therapy; Z89.612 Acquired absence of left leg above knee; Z86.718 Personal history of other venous thrombosis and embolism; Z92.21 Personal history of antineoplastic chemotherapy; Z92.3 Personal history of irradiation; Y83.5 Amputation of limb(s) as the cause of abnormal reaction of the patient, or of later complication, without mention of misadventure at the time of the procedure ==

== ENCOUNTER → 2020-08-23 | Outpatient (CLI) | payer MEDICARE, OTHER | LOC: EXRD 13:52 | DX: T87.81 Dehiscence of amputation stump (principal); E11.40 Type 2 diabetes mellitus with diabetic neuropathy, unspecified; Z89.612 Acquired absence of left leg above knee | CPT/HCPCS: 93926 ==

== ENCOUNTER → 2020-08-28 | Outpatient (CLI) | payer MEDICARE, OTHER | LOC: WCC 15:00 | DX: T87.81 Dehiscence of amputation stump (principal); S71.102A Unspecified open wound, left thigh, initial encounter; S71.101A Unspecified open wound, right thigh, initial encounter; S81.801A Unspecified open wound, right lower leg, initial encounter; E11.51 Type 2 diabetes mellitus with diabetic peripheral angiopathy without gangrene; E11.40 Type 2 diabetes mellitus with diabetic neuropathy, unspecified; E66.09 Other obesity due to excess calories; I10 Essential (primary) hypertension; F17.298 Nicotine dependence, other tobacco product, with other nicotine-induced disorders; J44.9 Chronic obstructive pulmonary disease, unspecified; Z91.19 Patient's noncompliance with other medical treatment and regimen; Z89.612 Acquired absence of left leg above knee; Z68.28 Body mass index [BMI] 28.0-28.9, adult; Z79.01 Long term (current) use of anticoagulants; Z79.891 Long term (current) use of opiate analgesic; Z79.899 Other long term (current) drug therapy; X58.XXXA Exposure to other specified factors, initial encounter ==